=== PATIENT | female | born 1985 | race Caucasian/White ===

== ENCOUNTER → 2022-10-24 07:51 | Outpatient (BNVA) | payer OTHER, SELFPAY | PROVIDERS: PCP Physician Assistant; Visit Provider Physician Assistant ==

== ENCOUNTER 2022-11-17 07:52 | Outpatient (AMB) | payer OTHER, SELFPAY ==
[2022-11-17 08:08] VITALS: BP 124/94; PULSE 104; TEMP 36.8; O2SAT 99; BMI 49.8
--- NOTE | 2022-11-17 08:08 | A.OFFVIS_ITS ---
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 SWL Allergies Latex Allergy (Mild, Uncoded 11/17/22 08:09) RASH Morphine Sulfate Allergy (Unknown, Uncoded 11/17/22 08:09) Anaphylaxis Medication List - Last Reconciled 11/17/22 by Ani Grimaldo PA-C amiodarone 200 mg PO DAILY atenolol 50 mg PO DAILY cholecalciferol (vitamin D3) 1,250 mcg PO .MONTHLY clonazepam (Klonopin) 0.5 mg PO TID levothyroxine 75 mcg PO DAILY lisdexamfetamine (Vyvanse) 30 mg PO DAILY lisinopril 40 mg PO DAILY mirtazapine 15 mg PO BEDTIME montelukast (Singulair) 10 mg PO DAILY pantoprazole (Protonix) 40 mg PO DAILY varenicline (Chantix) 1 mg PO BID vilazodone (Viibryd) 40 mg PO DAILY vitamin B complex (B Complex-Vitamin B12 tablet) 1 tab PO DAILY HPI HPI Comments History of Present Illness Details This is a 37 year old woman who is s/p LSG with Dr You in 2019 at [facility] [place]. PRe op weight 330 lbs lowest weight 278 lbs then had double TKR's and regained without being able to exercise. OVer the few months has had episodes of emesis in her sleep a few tiems per week. + nausea, + GERD no abd pain. She is looking for revision of her sleeve to resolve these issues. Sees her therapist weekly and has psychiatrist for ADHD. Her goal is to weigh around 200 lbs. . She reports first being concerned about her weight 2014. Diagnosed with Heart failure and afib has had 3 cardiac ablations and last ECHO 2020 showed EF >50% - per patient. 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 She lives with her sharmila 15 yr son. . She works 5d/week 29 hours per week from 8am - 2pm. Cahnged her diet when came for weigh in on 10/24 - prior to this did not eat until dinner time. Raw vegetables and homemade ranch dressing. She wakes at: 5-6 am bed at 8:30 - 10 pm Breakfast: 7am - 1 cup coffee with oatmilk and sugar free hazelnut syrup. Over last few weeks started a [employer] Core protein shake Lunch: 2pm- cheese stick (not hungry) Dinner: 5pm- uses smaller plate - has palm of hand protein and 1 TBL carb, 2 TBL of vegetable. Crystal Light or Coke Zero After dinner: nothing now Other snacks: granola rolls Liquids: daily carbonated drinks, fruit juice Alcohol intake: no ETOH,tobacco: stopped smoking in August 2022 - still on Chantix for relapse. marijuana: lotion for knees Exercise: has treadmill at home. 5d/ week - started 2 months ago. Speed 3.0, incline 0 fro 20 minutes - ? calories Last mammogram: never had one Last pap smear: 2021 control method: Nexplanon MAURO: 4 ESS: 5 GERD:12 QOL: 131 PFSH Surgical History (Updated 11/17/22 @ 08:35 by Ani Grimaldo PA-C) History of cardiac radiofrequency ablation Hx of appendectomy Hx of section Hx of cholecystectomy Hx of total knee replacement S/P gastric sleeve procedure Social History Alcohol intake: never Patient Tobacco Use Status: Former Tobacco user Physical Exam Vital Signs: Last Vital Signs Temp 98.3 F 11/17/22 08:08 Pulse 104 H 11/17/22 08:08 BP 124/94 H 11/17/22 08:08 Pulse Ox 99 11/17/22 08:08 Oxygen Delivery Method Room Air 11/17/22 08:08 BMI result Body Mass Index 49.8 Const General: cooperative, no acute distress and well developed Nutritional Appearance: obese Orientation/consciousness: patient oriented x3 HEENT Head: Yes normal to inspection Neck Neck: Yes normal visual inspection Thyroid: Thyroid normal Resp Effort & Inspection: normal respiratory effort Auscultation: clear to auscultation bilaterally Cardio Rate: regular rate Rhythm: regular rhythm Heart sounds: S1 normal heart sound present, S2 normal heart sound present and no murmurs GI Inspection: No distended and Yes obesity Palpation (GI): Soft to palpation, nontender and no guarding Skin General skin exam: no rashes or lesions noted and other (warm and dry) Wounds: no wounds Hair: normal Neuro General: patient oriented x3 Extrem General: Yes no pedal edema and Yes no calf tenderness Psych Attitude: cooperative Thought process: Normal thought process present Thought content: Normal thought content present Insight: Good insight present (Psych) Judgement: Good judgement present (Psych) Assessment & Plan Assessment & Plan (1) Morbid obesity: Code(s): E66.01 - Morbid (severe) obesity due to excess calories Plan: This is a 37 yo woman s/p LSg with minimal weight loss and significant cardiac history who wants to prepare for revision bariatric surgery for reflux and weight loss. Blood work, h pylori , CXR, ECG, Abd ULS and UGI have been ordered. She is being scheduled for RD and BH initial consultations. She will start SWL classes and watch at 3 classes before her next appt with Lolita. We will obtian iher OR report, barium swallow and ECHO result from [facility] and cardiology notes. 1. Adequate sleep of 7-8 hours per night discussed 2. Healthy meal plan - stop skipping meals and stop all sweetened drinks, stop carbonated drinks and eating after dinner All meals/MR's need to take 20 minutes to complete 7 am - 30 gram shake with 4 oz coffee 11 am - 30 gram shake 3 pm- bar or yogurt 5 pm- dinner of 4 oz lean protein, 4 oz vegetable, 1/2 serving fruit Exercise - Cardio 4 d week = treadmill at speed 3.0, incline 2-4 - to burn [address] - TBP up to 3d/ week, goal to finish class The importance of avoiding and breast feeding for at least 18 months after bariatric surgery was discussed in the information session and was r einforced today. Pt will purchase body composition analyzer (recommended list given to patient) and weight herself weekly. Next appt with me in 3 weeks. Text me with any questions and weekly weights. Patient is morbidly obese and is not considered stable at this time.?I spent a total of 60 minutes reviewing/updating records, examining the patient and counseling the patient on weight management as detailed above. (2) S/P gastric sleeve procedure: Comment: 2019 Code(s): Z90.3 - Acquired absence of stomach [part of] (3) Heart failure: Code(s): I50.9 - Heart failure, unspecified (4) Afib: Code(s): I48.91 - Unspecified atrial fibrillation (5) HTN (hypertension) with goal to be determined: Code(s): I10 - Essential (primary) hypertension (6) Chronic GERD: Code(s): K21.9 - Gastro-esophageal reflux disease without esophagitis (7) History of cardiac radiofrequency ablation: Comment: 2014 2015 2016 Code(s): Z98.890 - Other specified postprocedural states (8) Hypothyroid: Code(s): E03.9 - Hypothyroidism, unspecified (9) Smoker: Code(s): F17.200 - Nicotine dependence, unspecified, uncomplicated Orders: Orders Vitamin B12 and Folate Today E66.01 - Morbid (severe) obesity due to excess calories, I10 - Essential (primary) hypertension, K21.9 - Gastro-esophageal reflux disease without esophagitis, Z90.3 - Acquired absence of stomach [part of], Z98.890 - Other specified postprocedural states Comprehensive Met. Panel Today E66.01 - Morbid (severe) obesity due to excess calories, I10 - Essential (primary) hypertension, K21.9 - Gastro-esophageal reflux disease without esophagitis, Z90.3 - Acquired absence of stomach [part of], Z98.890 - Other specified postprocedural states C Reactive Protein Today E66.01 - Morbid (severe) obesity due to excess calories, I10 - Essential (primary) hypertension, K21.9 - Gastro-esophageal reflux disease without esophagitis, Z90.3 - Acquired absence of stomach [part of], Z98.890 - Other specified postprocedural states Ferritin Today E66.01 - Morbid (severe) obesity due to excess calories, I10 - Essential (primary) hypertension, K21.9 - Gastro-esophageal reflux disease without esophagitis, Z90.3 - Acquired absence of stomach [part of], Z98.890 - Other specified postprocedural states Hemoglobin A1c Today E66.01 - Morbid (severe) obesity due to excess calories, I10 - Essential (primary) hypertension, K21.9 - Gastro-esophageal reflux disease without esophagitis, Z90.3 - Acquired absence of stomach [part of], Z98.890 - Other specified postprocedural states Insulin Today E66.01 - Morbid (severe) obesity due to excess calories, I10 - Essential (primary) hypertension, K21.9 - Gastro-esophageal reflux disease without esophagitis, Z90.3 - Acquired absence of stomach [part of], Z98.890 - Other specified postprocedural states IRON PROFILE Today E66.01 - Morbid (severe) obesity due to excess calories, I10 - Essential (primary) hypertension, K21.9 - Gastro-esophageal reflux disease without esophagitis, Z90.3 - Acquired absence of stomach [part of], Z98.890 - Other specified postprocedural states Lipid Panel Today E66.01 - Morbid (severe) obesity due to excess calories, I10 - Essential (primary) hypertension, K21.9 - Gastro-esophageal reflux disease without esophagitis, Z90.3 - Acquired absence of stomach [part of], Z98.890 - Other specified postprocedural states PTHI Today E66.01 - Morbid (severe) obesity due to excess calories, I10 - Essential (primary) hypertension, K21.9 - Gastro-esophageal reflux disease without esophagitis, Z90.3 - Acquired absence of stomach [part of], Z98.890 - Other specified postprocedural states TSH reflex Free T4 Today E66.01 - Morbid (severe) obesity due to excess calories, I10 - Essential (primary) hypertension, K21.9 - Gastro-esophageal reflux disease without esophagitis, Z90.3 - Acquired absence of stomach [part of], Z98.890 - Other specified postprocedural states Vitamin A Today E66.01 - Morbid (severe) obesity due to excess calories, I10 - Essential (primary) hypertension, K21.9 - Gastro-esophageal reflux disease without esophagitis, Z90.3 - Acquired absence of stomach [part of], Z98.890 - Other specified postprocedural states Vitamin B1 Today E66.01 - Morbid (severe) obesity due to excess calories, I10 - Essential (primary) hypertension, K21.9 - Gastro-esophageal reflux disease without esophagitis, Z90.3 - Acquired absence of stomach [part of], Z98.890 - Other specified postprocedural states Vitamin D 25-OH Total Today E66.01 - Morbid (severe) obesity due to excess raad joslyn, I10 - Essential (primary) hypertension, K21.9 - Gastro-esophageal reflux disease without esophagitis, Z90.3 - Acquired absence of stomach [part of], Z98.890 - Other specified postprocedural states Zinc Today E66.01 - Morbid (severe) obesity due to excess calories, I10 - Essential (primary) hypertension, K21.9 - Gastro-esophageal reflux disease without esophagitis, Z90.3 - Acquired absence of stomach [part of], Z98.890 - Other specified postprocedural states ECG 12 lead EKG Today E66.01 - Morbid (severe) obesity due to excess calories, I10 - Essential (primary) hypertension, K21.9 - Gastro-esophageal reflux disease without esophagitis, Z90.3 - Acquired absence of stomach [part of], Z98.890 - Other specified postprocedural states FL upper GI w air Today E66.01 - Morbid (severe) obesity due to excess calories, I10 - Essential (primary) hypertension, K21.9 - Gastro-esophageal reflux disease without esophagitis, Z90.3 - Acquired absence of stomach [part of], Z98.890 - Other specified postprocedural states Complete Blood Count Auto Diff Today E66.01 - Morbid (severe) obesity due to excess calories, I10 - Essential (primary) hypertension, K21.9 - Gastro- esophageal reflux disease without esophagitis, Z90.3 - Acquired absence of stomach [part of], Z98.890 - Other specified postprocedural states H Pylori Breath Test Today E66.01 - Morbid (severe) obesity due to excess calories, I10 - Essential (primary) hypertension, K21.9 - Gastro-esophageal re flux disease without esophagitis, Z90.3 - Acquired absence of stomach [part of], Z98.890 - Other specified postprocedural states US abdomen comp w elastography Today E66.01 - Morbid (severe) obesity due to excess calories, I10 - Essential (primary) hypertension, K21.9 - Gastro- esophageal reflux disease without esophagitis, Z90.3 - Acquired absence of stomach [part of], Z98.890 - Other specified postprocedural states XR chest 2V Today E66.01 - Morbid (severe) obesity due to excess calories, I10 - Essential (primary) hypertension, K21.9 - Gastro-esophageal reflux disease without esophagitis, Z90.3 - Acquired absence of stomach [part of], Z98.890 - Other specified postprocedural states Referrals Behavioral Health Referral E66.01 - Morbid (severe) obesity due to excess calories, I10 - Essential (primary) hypertension, K21.9 - Gastro-esophageal reflux disease without esophagitis, Z90.3 - Acquired absence of stomach [part of], Z98.890 - Other specified postprocedural states Nutrition/Dietitian Referral E66.01 - Morbid (severe) obesity due to excess calories, I10 - Essential (primary) hypertension, K21.9 - Gastro-esophageal reflux disease without esophagitis, Z90.3 - Acquired absence of stomach [part of], Z98.890 - Other specified postprocedural states Coding Level of Care Code New Pt Level 5 (38639) Diagnoses Morbid obesity E66.01 S/P gastric sleeve procedure Z90.3 Heart failure I50.9 Afib I48.91 HTN (hypertension) with goal to be determined I10 Chronic GERD K21.9 History of cardiac radiofrequency ablation Z98.890 Hypothyroid E03.9 Smoker F17.200
== END 2022-11-17 09:43 | disposition home or self-care (01) ==
PROVIDERS: PCP Physician Assistant; Visit Provider Physician Assistant
DX: E66.01 Morbid (severe) obesity due to excess calories (principal); Z68.42 Body mass index [BMI] 45.0-49.9, adult; Z90.3 Acquired absence of stomach [part of]; Z98.84 Bariatric surgery status
CPT/HCPCS: 99205

== ENCOUNTER → 2022-11-17 07:52 | Outpatient (BNVA) | payer OTHER, SELFPAY | PROVIDERS: PCP Physician Assistant; Visit Provider Physician Assistant | DX: E66.01 Morbid (severe) obesity due to excess calories (principal); K21.9 Gastro-esophageal reflux disease without esophagitis; I48.91 Unspecified atrial fibrillation; I11.0 Hypertensive heart disease with heart failure; I50.9 Heart failure, unspecified; E03.9 Hypothyroidism, unspecified; F17.200 Nicotine dependence, unspecified, uncomplicated; Z68.42 Body mass index [BMI] 45.0-49.9, adult; Z90.3 Acquired absence of stomach [part of]; Z98.890 Other specified postprocedural states; Z90.49 Acquired absence of other specified parts of digestive tract; Z96.653 Presence of artificial knee joint, bilateral | CPT/HCPCS: 99202 ==